=== PATIENT | male | born 1990 | race American Indian/Alaskan Native ===

== ENCOUNTER 2018-02-16 21:12 | Emergency (ER) | payer SELFPAY ==
[2018-02-16 21:48] VITALS: BP 134/73
== END 2018-02-17 01:10 | disposition left against medical advice (07) ==
LOC: ED 21:12
DX: J02.9 Acute pharyngitis, unspecified (principal); Z53.21 Procedure and treatment not carried out due to patient leaving prior to being seen by health care provider

== ENCOUNTER 2018-06-15 22:11 | Emergency (ER) | payer SELFPAY ==
[2018-06-15 22:20] VITALS: BP 125/86
--- NOTE | 2018-06-15 23:11 | XRay Report ---
FINAL REPORT PROCEDURE: Cervical spine. TECHNIQUE: Three views. HISTORY: Neck pain. COMPARISON: No prior studies are available for comparison. FINDINGS: The cervical vertebrae have normal height and satisfactory alignment. There are no fractures. There is no subluxation. The disc spaces appear adequate. The prevertebral soft tissues have normal thickness. IMPRESSION: No significant abnormality.
--- NOTE | 2018-06-16 01:13 | Emergency Department Report ---
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 Denies any loss of strength, however, pain is progressively worsening and they're waxing and waning fashion. MD Complaint: neck pain -: Gradual, week(s) (1) Place: home (woke with pain and it progressively worsen. ) Radiation: left lateral, left shoulder Severity: moderate Quality: burning, sharp Consistency: constant Improves With: heat therapy Worsens With: movement of extremity, movement of neck Context: unknown (woke with pain from.) Associated Symptoms: none Treatments Prior to Arrival: none - Related Data Previous Rx's Medication Instructions Recorded Last Taken Type Ketorolac [Toradol] 10 mg PO Q8H PRN #15 tablet 06/16/18 Unknown Rx Methocarbamol [Robaxin-750] 750 mg PO TID #20 tablet 06/16/18 Unknown Rx Allergies Allergy/AdvReac Type Severity Reaction Status Date / Time No Known Allergies Allergy Unverified 02/16/18 21:50 ED Review of Systems ROS: Stated complaint: NECK PAIN, LEFT ARM PAIN Other details as noted in HPI Constitutional: denies: chills, fever Eyes: denies: eye pain, eye discharge, vision change ENT: denies: ear pain, throat pain Respiratory: denies: cough, shortness of breath, wheezing Cardiovascular: denies: chest pain, palpitations Endocrine: no symptoms reported Gastrointestinal: denies: abdominal pain, nausea, diarrhea Genitourinary: denies: urgency, dysuria Musculoskeletal: denies: back pain, joint swelling, arthralgia Skin: denies: rash, lesions Neurological: denies: headache, weakness, paresthesias Psychiatric: denies: anxiety, depression Hematological/Lymphatic: denies: easy bleeding, easy bruising ED Past Medical Hx - Past Medical History Previous Medical History?: No - Surgical History Past Surgical History?: No - Social History Smoking Status: Never Smoker Substance Use Type: None - Medications Home Medications: Home Medications Medication Instructions Recorded Confirmed Last Taken Type Ketorolac [Toradol] 10 mg PO Q8H PRN #15 tablet 06/16/18 Unknown Rx Methocarbamol [Robaxin-750] 750 mg PO TID #20 tablet 06/16/18 Unknown Rx ED Physical Exam - General Limitations: No Limitations General appearance: alert, in no apparent distress - Head Head exam: Present: atraumatic, normocephalic - Eye Eye exam: Present: normal appearance, PERRL - ENT ENT exam: Present: normal exam, mucous membranes moist - Neck Neck exam: Present: normal inspection, tenderness, full ROM (some pain with spurlings. mild spasm to left trapezius ). Absent: meningismus, lymphadenopathy , thyromegaly - Respiratory Respiratory exam: Present: normal lung sounds bilaterally. Absent: respiratory distress - Cardiovascular Cardiovascular Exam: Present: regular rate, normal rhythm. Absent: systolic murmur, diastolic murmur, rubs, gallop - GI/Abdominal GI/Abdominal exam: Present: soft, normal bowel sounds - Rectal Rectal exam: Present: deferred - Extremities Exam Extremities exam: Present: normal inspection - Expanded Upper Extremity Exam Left Shoulder Exam: Present: full ROM, other (some pain with obriens and leal. ) Elbow exam: Present: normal inspection Forearm Wrist exam: Present: normal inspection, full ROM. Absent: tenderness, swelling, abrasion Hand Wrist exam: Present: normal inspection, full ROM Neuro motor exam: Present: thumb opposition intact, thumb IP flexion intact, thumb adduction intact Vascular: Present: normal capillary refill - Back Exam Back exam: Present: normal inspection - Neurological Exam Neurological exam: Present: alert, oriented X3, CN II-XII intact - Psychiatric Psychiatric exam: Present: normal affect, normal mood - Skin Skin exam: Present: warm, dry, intact, normal color. Absent: rash ED Course Vital Signs 06/15/18 06/15/18 22:18 22:23 Temperature 98.7 F 98.7 F Pulse Rate 73 73 Respiratory 16 16 Rate Blood Pressure 125/86 Blood Pressure 125/86 [Right] O2 Sat by Pulse 96 96 Oximetry Critical care attestation.: If time is entered above; I have spent that time in minutes in the direct care of this critically ill patient, excluding procedure time. ED Disposition Clinical Impression: Neck pain on left side Disposition: DC-01 TO HOME OR SELFCARE Is pt being admited?: No Does the pt Need Aspirin: No Condition: Stable Prescriptions: Ketorolac [Toradol] 10 mg PO Q8H PRN #15 tablet PRN Reason: Pain Methocarbamol [Robaxin-750] 750 mg PO TID #20 tablet Referrals: PRIMARY CARE, [Primary Care Provider] - 3-5 Days GEMINI HOWARD MD [Staff Physician] - 3-5 Days
== END 2018-06-16 01:40 | disposition home or self-care (01) ==
LOC: ED 22:11
DX: M54.2 Cervicalgia (principal)
CPT/HCPCS: 72040; 99283

== ENCOUNTER 2019-03-02 12:52 | Emergency (ER) | payer SELFPAY ==
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
--- NOTE | 2019-03-02 13:54 | XRay Report ---
CERVICAL SPINE, 3 views: History: Neck pain. Findings: The vertebral bodies, disk spaces, posterior elements and prevertebral soft tissues are unremarkable. The dens is intact. No acute fracture or malalignment is identified. Mild disc space narrowing is identified at C3-4 and C5-6. Impression: Mild cervical spondylosis. No evidence for acute injury to the cervical spine.
--- NOTE | 2019-03-02 13:55 | XRay Report ---
LEFT SHOULDER: History: Pain. Routine views demonstrate normal bony and soft tissue structures with normal joint alignment of the shoulder. IMPRESSION: Normal study.
[2019-03-02] MEDS ORDERED: TORADOL IM ONE (15:48)
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
[2019-03-02] MEDS ORDERED: DELTASONE PO NR (16:00)
[2019-03-02 17:24] VITALS: BP 143/84
== END 2019-03-02 17:32 | disposition home or self-care (01) ==
LOC: ED 12:52
DX: M79.18 Myalgia, other site (principal); M25.512 Pain in left shoulder; M54.2 Cervicalgia; V49.49XA Driver injured in collision with other motor vehicles in traffic accident, initial encounter; Y93.89 Activity, other specified; Y92.89 Other specified places as the place of occurrence of the external cause; Y99.8 Other external cause status
CPT/HCPCS: 72040; 73030; 96372; 99283; J1885; J7512